=== PATIENT | male | born 1995 | race Caucasian/White ===

== ENCOUNTER 2016-02-24 20:45 | Emergency (ER) | payer OTHER ==
[~2016-02-24] VITALS: Ht 185.4 cm; Wt 87.2 kg
[2016-02-24 22:42] VITALS: BP 120/61
== END 2016-02-24 22:56 | disposition home or self-care (01) ==
LOC: EME 20:45 → EXP 20:45
PROC: 3E0234Z Introduction of Serum, Toxoid and Vaccine into Muscle, Percutaneous Approach (ICD-10-PCS; principal; 2016-02-24)
DX: T15.92XA Foreign body on external eye, part unspecified, left eye, initial encounter (principal); F17.200 Nicotine dependence, unspecified, uncomplicated
CPT/HCPCS: 99281; 99284